=== PATIENT | female | born 1925 | race Caucasian/White ===

== ENCOUNTER 2016-09-08 21:04 | Emergency (ER) | payer OTHER ==
[2016-09-08 21:17] VITALS: RESP 14; TEMP 98.4
[2016-09-08] MEDS ORDERED: SILVER NITRATE APPLICATOR 1 APPL TP ONE ×2 (21:57→22:50)
[2016-09-08] MEDS ORDERED: OXYMETAZOLINE 30 ML NASAL SPRAY ONE (21:57)
[2016-09-08] MEDS ORDERED: OXYMETAZOLINE 30 ML NASAL SPRAY EACHNARE ONE (22:49)
[2016-09-08 23:04] VITALS: BP 117/83; PULSE 106; O2SAT 91
--- NOTE | 2016-09-08 23:14 | EDPHY ---
H & P Stated Complaint: Nose Bleed Time Seen by Provider: 09/08/16 21:58 HPI/ROS: CHIEF COMPLAINT: Epistaxis HISTORY OF PRESENT ILLNESS: 89-year-old female presents emergency department with her from [facility] with a nosebleed x4 hours. Patient has been using a nose clip at home though every time she removed it continues to bleed. Patient was picking her nose earlier today when it started bleeding. Patient denies chest pain, shortness of breath, headache, dizziness or lightheadedness. She takes aspirin and a blood pressure pill daily. Last epistaxis was 1 year ago. REVIEW OF SYSTEMS: A comprehensive 10 point review of systems is otherwise negative aside from elements mentioned in the history of present illness. Source: Patient, Family Exam Limitations: Clinical condition - Personal History Current Tetanus/Diphtheria Vaccine: Yes Current Tetanus Diphtheria and Acellular Pertussis (TDAP): Yes - Medical/Surgical History Hx Asthma: No Hx Chronic Respiratory Disease: No Hx Diabetes: No Hx Cardiac Disease: No Hx Renal Disease: No Hx Cirrhosis: No Hx Alcoholism: No Hx HIV/AIDS: No Hx Splenectomy or Spleen Trauma: No Other PMH: [place], alzheimers, HTN - Social History Smoking Status: Never smoked - Physical Exam Exam: Physical Exam Gen: Alert and Oriented, NAD HEENT: PERRL, anterior left septal epistaxis slowly oozing, moist mucous membranes NECK: no meningismus CV: Tachycardic rate and regular rhythm PULM: CTAB, no wheezes ABDOMEN: soft, non tender to palpation, BS present BACK: No CVA tenderness NEURO: Follows commands, no facial asymmetry, moves all extremities EXTREMITIES: normal appearing SKIN: no rash or break in skin on exposed skin PSYCH: answers questions appropriately. Constitutional: Initial Vital Signs Temperature (C) 36.9 C 09/08/16 21:14 Heart Rate 110 H 09/08/16 21:14 Respiratory Rate 14 09/08/16 21:14 Blood Pressure 141/71 H 09/08/16 21:14 O2 Sat (%) 96 09/08/16 21:14 O2 Delivery Mode Room Air Allergies/Adverse Reactions: No Known Allergies Allergy (Unverified 09/08/16 21:13) Home Medications: Medication Instructions Recorded Aspirin 81mg (*) 09/08/16 Lisinopril 09/08/16 Medical Decision Making Procedures: Procedure: Epistaxis control. Indication: Nosebleed not controlled by direct pressure. Risks, benefits, alternatives discussed with patient. Consent was obtained. The left nares was cleared with Bobo suction and blowing nose. Several clots were removed. The left nares was sprayed with Afrin. Anterior Rhinoscopy was performed with fiber optic headlamp and nasal speculum. The anterior epistaxis was identified. The patient was treated with silver nitrate sticks 1st which was not successful and then packing. Excellent hemostasis was obtained. Following the procedure, the patient was re-examined every 15 to 30 minutes until the patient was free from epistaxis for 1-hour post procedure. The patient tolerated the procedure well. The procedure was performed by myself. ED Course/Re-evaluation: 89-year-old female presents emergency department with epistaxis. This was treated with nasal packing. Patient tolerated this well. She is ambulatory after the procedure without difficulty and stable on her feet. She will be discharged home with instructions to return in 72 hours for packing removal. - Data Points Medications Given: Discontinued Medications Oxymetazoline HCl (Afrin Nasal [place]) 2 sprays EACHNARE EDNOW ONE Stop: 09/08/16 22:50 Last Admin: 09/08/16 22:00 Dose: 2 sprays Silver Nitrate/Potassium Nitrate (Silver Nitrate Applicator) 2 each TP EDNOW ONE Stop: 09/08/16 22:51 Last Admin: 09/08/16 22:00 Dose: 2 each Departure - Departure Disposition: Home, Routine, Self-Care Clinical Impression: Acute anterior epistaxis Condition: Good Instructions: Nosebleed (ED) Additional Instructions: Return to the emergency department in 72 hours which is Monday for packing removal, return sooner for any new symptoms, questions or concerns. Referrals: SARAY STRINGER [Primary Care Provider] - As per Instructions
== END 2016-09-08 23:37 | disposition home or self-care (01) ==
LOC: EDUNIT#
PROC: 2Y41X5Z Packing of Nasal Region using Packing Material (ICD-10-PCS; principal; 2016-09-08)
DX: R04.0 Epistaxis (principal); I10 Essential (primary) hypertension; I25.2 Old myocardial infarction; G30.9 Alzheimer's disease, unspecified; Z79.82 Long term (current) use of aspirin

== ENCOUNTER 2016-09-11 12:11 | Emergency (ER) | payer OTHER ==
[2016-09-11 12:17] VITALS: PULSE 78; RESP 18
--- NOTE | 2016-09-11 12:30 | EDPHY ---
H & P Stated Complaint: nose bleed Time Seen by Provider: 09/11/16 12:21 HPI/ROS: CHIEF COMPLAINT: Epistaxis recheck HISTORY OF PRESENT ILLNESS: The patient presents to the ED today for epistaxis recheck. She was seen in the ED on of this week after she developed anterior epistaxis which could not be controlled with silver nitrate cautery. She had a nasal packing placed at that time. Her removed her nasal packing earlier today and the patient developed some mild recurrent bleeding prompting her visit to the ED. The patient denies any complaints of acute lightheadedness. She denies additional infectious symptoms of fever, cough or congestion. REVIEW OF SYSTEMS: A comprehensive 10 point review of systems is otherwise negative aside from elements mentioned in the history of present illness. Source: Patient Exam Limitations: No limitations - Personal History Current Tetanus Diphtheria and Acellular Pertussis (TDAP): Yes - Medical/Surgical History Hx Asthma: No Hx Chronic Respiratory Disease: No Hx Diabetes: No Hx Cardiac Disease: No Hx Renal Disease: No Hx Cirrhosis: No Hx Alcoholism: No Hx HIV/AIDS: No Hx Splenectomy or Spleen Trauma: No Other PMH: MD, alzheimers, HTN, nose bleed - Social History Smoking Status: Never smoked - Physical Exam Exam: General Appearance: Alert, no distress Eyes: Pupils equal and round no pallor or injection ENT, Mouth: Large amount of clot noted in the left nares Respiratory: There are no retractions, lungs are clear to auscultation Cardiovascular: Regular rate and rhythm Gastrointestinal: Abdomen is soft and nontender, no masses, bowel sounds normal Neurological: Grossly normal motor function Skin: Warm and dry, no rashes Musculoskeletal: Neck is supple nontender Extremities: symmetrical, full range of motion Constitutional: Initial Vital Signs Temperature (C) 36.6 C 09/11/16 12:15 Heart Rate 78 09/11/16 12:15 Respiratory Rate 18 09/11/16 12:15 Blood Pressure 120/81 H 09/11/16 12:15 O2 Sat (%) 93 09/11/16 12:15 O2 Delivery Mode Room Air Allergies/Adverse Reactions: No Known Allergies Allergy (Verified 09/11/16 12:18) Home Medications: Medication Instructions Recorded Aspirin 81mg (*) 09/08/16 Lisinopril 09/08/16 Medical Decision Making ED Course/Re-evaluation: The patient had a large amount of clot in her left nares. The clot was removed by having the patient below forcefully into a Kleenex. Patient was re-evaluated at 1:00 p.m.. She has had no recurrent bleeding the emergency department. She will be discharged home with customary aftercare and return precautions. Departure - Departure Disposition: Home, Routine, Self-Care Clinical Impression: Epistaxis Condition: Good Instructions: Nosebleed (ED) Additional Instructions: 1. Please return to the emergency department for recurrent bleeding or other concerns. 2. Please follow up with your primary care provider as needed. 3. You have been given the number of our on-call ENT physician if you have problems with ongoing intermittent nose bleeding. Referrals: Deric Sherman MD [Medical Doctor] - As per Instructions
[2016-09-11 13:31] VITALS: BP 137/67; TEMP 98.6; O2SAT 90
== END 2016-09-11 13:31 | disposition home or self-care (01) ==
DX: R04.0 Epistaxis (principal); I10 Essential (primary) hypertension; I25.2 Old myocardial infarction; Z79.82 Long term (current) use of aspirin